=== PATIENT | female | born 1985 ===

== ENCOUNTER → 2017-05-24 | Day surgery (SDC) | payer OTHER ==
[~2017-05-24] MED LIST: DIOVAN80 M1 PO; FLONASE 0.05% N16 G1; HYDROCODON-ACE1 EAC7 PO; IBUPROFEN800 MG PO; ZYRTEC PO
--- NOTE | ~2017-05-24 | OR ---
Unit #: [id number] #: [id number] Patient: HEBER LUKE [id number] [address] [place], [place] [address] [id number] O MR#: [id number] NAME: HEBER LUKE ROOM: Date of Procedure: 05/24/2017 Admission Date: 05/24/2017 Surgeon: Tunde Rivera M.D. : 1985 Attending Physician: Tunde Rivera M.D. OPERATIVE REPORT PREOPERATIVE DIAGNOSIS Chronic cholecystitis. POSTOPERATIVE DIAGNOSIS Chronic cholecystitis. PROCEDURE PERFORMED Laparoscopic cholecystectomy. NIGHT ORDER SELECTOR Raphael Waters M.D. ANESTHESIA General endotracheal anesthesia. ESTIMATED BLOOD LOSS Minimal. IV FLUIDS 800 crystalloid. COMPLICATIONS None. INDICATIONS FOR PROCEDURE The patient is a 31-year-old with recurrent right upper quadrant abdominal pain and gallstones. She presents for laparoscopic cholecystectomy. DESCRIPTION OF PROCEDURE The patient was taken to the operating theater and placed in supine position. General anesthesia was induced. Her abdomen was prepped and draped. A 5-mm Optiview trocar was placed in the right upper quadrant without difficulty. The abdomen was insufflated to 15 mmHg with CO2. Under direct vision, I placed a subxiphoid 10 mm, right lateral 5 mm, umbilical 5 mm. General inspection of the abdomen revealed distended gallbladder with no active inflammation. The gallbladder retracted up over the liver. We dissected the neck of the gallbladder and identified the cystic duct. Its junction with the gallbladder was confirmed. It was thus skeletonized, doubly clipped and divided. The cystic artery laid immediately posterior. This was skeletonized, doubly hemoclipped, and divided. The gallbladder was removed from the gallbladder bed with Bovie electrocautery and delivered via the subxiphoid port. Hemostasis was Unit #: [id number] #: [id number] Patient: HEBER LUKE adequate. I removed the ports under direct vision and closed the wounds with 4-0 Vicryl. The patient tolerated the procedure well and sent to recovery room in good condition. Dictated by... Gaurav Clifton/karie TD: 05/24/2017 15:34 JOB #: [id number] OPERATIVE REPORT Page 1 of 1 X Tunde Rivera MD PROCEDURE OPERATIVE NOTE
--- NOTE | ~2017-05-24 | EKG ---
PATIENT: HEBER LUKE UNIT #: [id number] Ventricular Rate: 81 BPM Atrial Rate: 81 BPM P-R Interval: 152 ms QRS Duration: 82 ms Q-T Interval: 384 ms QTC Calculation(Bezet): 446 ms P Darling: 53 degrees Calculated R Darling: 74 degrees Calculated T Darling: 31 degrees Diagnosis Line: Normal sinus rhythm Diagnosis Line: Possible Left atrial enlargement Diagnosis Line: Borderline ECG Diagnosis Line: No previous ECGs available Diagnosis Line: Confirmed by ZULAY AYALA MD ([id number]) on Diagnosis Line: 05/24/2017 1:29:05 PM INTERPRETING MD: LUCY UP
[2017-05-24 07:49] LABS: BASOPHIL% 0.7 % (0-2.5); EOSINOPHIL# 0.1 X10e3 (0-0.7); EOSINOPHIL% 1.1 % (0.0-7.0); HEMOGLOBIN 10.3 gm/dL (12.0-16.0); LYMPHOCYTE# 1.4 X10e3 (1.0-3.5); LYMPHOCYTE% 25.3 % (17.0-45.0); MEAN CELL VOLUME 74.3 FL (83-96); MEAN CORPUSCULAR HEMOGLOBIN 23.9 PG (28-34); MEAN CORPUSCULAR HGB CONC 32.2 g/dL (30-36); MEAN PLATELET VOLUME 8.2 FL (6.5-11.5); MONOCYTE# 0.4 X10e3 (0-1.0); MONOCYTE% 6.9 % (3.0-12.0); NEUTROPHIL# 3.6 X10e3 (1.5-7.1); PLATELET COUNT 177 X10e3 (140-420); RED CELL DISTRIBUTION WIDTH 19.6 % (11.0-15.5); WHITE BLOOD COUNT 5.5 X10e3 (4.0-10.5)
[2017-05-24 07:51] LABS: DIFF IND NO
[2017-05-24 08:15] LABS: BUN/CREATININE RATIO 16.25; CALCIUM SERUM 9.3 mg/dL (8.4-10.2); CREATININE SERUM 0.8 mg/dL (0.6-1.4); POTASSIUM 3.6 mmol/L (3.5-5.1)
== END | disposition home or self-care (01) ==
LOC: CSUR 07:05
PROVIDERS: Surgery
DX: K80.10 Calculus of gallbladder with chronic cholecystitis without obstruction (principal); I10 Essential (primary) hypertension; F17.210 Nicotine dependence, cigarettes, uncomplicated; Z88.2 Allergy status to sulfonamides; Z79.51 Long term (current) use of inhaled steroids; Z79.1 Long term (current) use of non-steroidal anti-inflammatories (NSAID); Z79.899 Other long term (current) drug therapy
CPT/HCPCS: 80048; 84703; 85025; 88304; 93005; J0330; J0360; J0690; J1100; J2250; J2405; J2710; J3010